=== PATIENT | female | born 2000 | race African-American/Black ===

== ENCOUNTER 2020-05-03 10:16 | Emergency (ER) | payer OTHER ==
[2020-05-03 10:25] VITALS: BP 134/85; PULSE 92; TEMP 98.8; BMI 54.9
[2020-05-03] MEDS ORDERED: KETOROLAC TROMETHAMINE 60 MG/2 ML VIAL IM ONE (10:36)
[2020-05-03] MEDS ORDERED: KETOROLAC TROMETHAMINE 60 MG/2 ML VIAL ONE (10:43)
--- NOTE | 2020-05-03 11:27 | PDOC ---
History of Present Illness - General Chief Complaint: Back Pain Stated Complaint: BACK /RIGHT LEG PAIN Time Seen by Provider: 05/03/20 10:36 History Source: Patient Exam Limitations: No Limitations - History of Present Illness Initial Comments: 05/03/20 11:27 19-year-old female presents to ED with complaints of low back pain for the past months now causing radiation down her right buttock/leg. Patient denies any injury and denies history of back pain. Patient denies any rash, kidney pain, urinary complaints. Patient denies incontinence, saddle anesthesia, or lower extremity weakness 05/03/20 11:28 Occurred: reports: other Severity: reports: mild Pain Location: reports: back, lower extremity Method of Injury: Yes: unknown Associated Symptoms (Fall): denies symptoms Past History - Travel History Traveled outside of the country in the last 30 days: No Close contact w/someone who was outside of country & ill: No - Medical History Allergies/Adverse Reactions: Allergies Allergy/AdvReac Type Severity Reaction Status Date / Time No Known Allergies Allergy Verified 05/03/20 10:19 COPD: No Diabetes: (pre) HTN: Yes Thyroid Disease: Yes (hypo) - Reproductive History Is Patient Now?: No - Psycho-Social/Smoking History Patient Lives Alone: No Lives with/in: parents Smoking History: Never smoked Have you smoked in the past 12 months: No - Substance Abuse Hx (Audit-C & DAST Scrn) How often the patient has a drink containing alcohol: Never Score: In Men: 4 or > Positive; In Women: 3 or > Positive: 0 Screen Result (Pos requires Nsg. Audit-10AR): Negative In the last yr the pt used illegal drug/Rx for NonMed reason: No Score: Yes response is considered Positive: 0 Screen Result (Positive result requires Nsg. DAST-10): Negative Review of Systems - Review of Systems Able to Perform ROS?: Yes Constitutional: No: Symptoms Reported HEENTM: No: Symptoms Reported Respiratory: No: Symptoms reported Cardiac (ROS): No: Symptoms Reported ABD/GI: No: Symptoms Reported : No: Symptoms Reported Musculoskeletal: Yes: Back Pain, Muscle Pain Integumentary: No: Symptoms Reported Neurological: No: Headache, Tingling, Weakness, Dizziness *Physical Exam - Vital Signs Last Vital Signs Temp Pulse Resp BP Pulse Ox 98.8 F 92 H 18 134/85 100 05/03/20 10:20 05/03/20 10:20 05/03/20 10:20 05/03/20 10:20 05/03/20 10:20 - Physical Exam General Appearance: Yes: Nourished, Appropriately Dressed. No: Apparent Distress HEENT: positive: EOMI Neck: positive: Normal Thyroid Respiratory/Chest: negative: Respiratory Distress Cardiovascular: negative: Edema Gastrointestinal/Abdominal: positive: Soft. negative: Tenderness Musculoskeletal: positive: Other (Right paraspinous at L4-L5 level and right sciatic tenderness). negative: Vertebral Tenderness Extremity: positive: Normal Inspection Integumentary: positive: Normal Color, Warm, Moist Neurologic: positive: Normal Mood/Affect, Motor Strength 5/5 (Ambulatory. Normal axial loading), Other ED Treatment Course - RADIOLOGY Radiology Studies Ordered: Category Date Time Status HIP & PELVIS-RIGHT [RAD] Stat Radiology 05/03/20 10:39 Completed SPINE-LUMBAR ONLY [RAD] Stat Radiology 05/03/20 10:37 Completed - Medications Given in the ED: ED Medications Discontinued Medications Generic Name Dose Route Start Last Admin Trade Name Freq PRN Reason Stop Dose Admin Ketorolac Tromethamine 60 mg 05/03/20 10:36 05/03/20 10:55 Toradol Injection - IM 05/03/20 10:37 60 mg ONCE ONE Administration Medical Decision Making - Medical Decision Making 05/03/20 11:29 Chief complaint: Patient with 2 months of low back pain rating down her right leg. Exam: Patient with tenderness at L4-L5 level over the right paraspinous muscles and with right sciatic tenderness. Plan: X-ray of the lumbar spine including hip and pelvis 05/03/20 11:31 X-ray shows slight scoliosis in the 5 lumbar type vertebral bodies. 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 Intervertebral disc spaces and prevertebral soft tissue appear intact. There is vertebral wedging seen at T11-T12. If symptoms persist further imaging and orthopedic consult may be of help 05/03/20 11:32 Patient states feeling better after receiving Toradol. Patient will be given referral to neurosurgeon Dr. Ruffin Discharge - Discharge Information Problems reviewed: Yes Clinical Impression/Diagnosis: Low back pain with sciatica Condition: Improved Disposition: HOME - Follow up/Referral Referrals: Hong Moyer MD, [facility] [Staff Physician] - - Patient Discharge Instructions Patient Printed Discharge Instructions: DI for Back Pain With Sciatica Additional Instructions: Take Motrin or Tylenol for discomfort. Avoid movements that trigger discomfort. Follow-up with referred specialist by calling the number listed on your discharge - Post Discharge Activity
== END 2020-05-03 11:51 | disposition home or self-care (01) ==
LOC: JERFT 10:16
PROC: 3E0233Z Introduction of Anti-inflammatory into Muscle, Percutaneous Approach (ICD-10-PCS; principal; 2020-05-03)
DX: M54.5 Low back pain (principal)
CPT/HCPCS: 72100-TC-FY; 73523-TC-FY; 99285-25